=== PATIENT | female | born 1995 | race Hispanic/Latino ===

== ENCOUNTER → 2022-11-04 | Outpatient (CLI) | payer OTHER ==
[~2022-11-04] MED LIST: SUCR1TAB56 PO
== END ==
LOC: EDSEX → M LABSMTC 09:06
PROVIDERS: ATTEND Anesthesiology
DX: Z01.812 Encounter for preprocedural laboratory examination (principal); Z11.52 Encounter for screening for COVID-19

== ENCOUNTER 2022-11-09 09:10 | Observation (INO) | payer OTHER ==
[~2022-11-09] VITALS: Ht 172.7 cm; Wt 75.3 kg
[~2022-11-09 09:10] MED LIST changes: +HEPARIN SOD (PORCINE) 5000UNITS/ML 1ML VIAL/SYRINGE SQ ONE; +LR 1,000 ML IV SCH; +ONDANSETRON 4MG 2ML VIAL IV PRN; +ceFAZolin SOD 2 GM in IV 1 EA IV ONE; +fentaNYL 100 MCG/2 ML INJECTION IV PRN; +oxyCODONE 5MG TAB PO PRN
[2022-11-09] MEDS ORDERED: fentaNYL 250 MCG/5 ML INJECTION As Ordered ONE (09:14)
[2022-11-09] MEDS ORDERED: LIDOCAINE 2% 100MG/5ML SDV (FOR ANES.) As Ordered ONE (09:14)
[2022-11-09] MEDS ORDERED: ONDANSETRON 4MG 2ML VIAL As Ordered ONE (09:14)
[2022-11-09] MEDS ORDERED: propofoL 200 MG/20 ML VIAL As Ordered ONE (09:14)
[2022-11-09] MEDS ORDERED: ROCURONIUM BROMIDE 50MG/5ML VIAL As Ordered ONE (09:14)
[2022-11-09] MEDS ORDERED: MIDAZOLAM INJ 2MG/2ML VIAL As Ordered ONE (09:15)
[2022-11-09] MEDS ORDERED: GENTAMICIN SULF 80MG/2ML VIAL As Ordered ONE (10:58)
[2022-11-09] MEDS ORDERED: BUPIVACAINE LIPOSOME/PF 1.3% 20ML VIAL (13.3MG/ML)(EXPAREL) As Ordered ONE (10:58)
[2022-11-09] MEDS ORDERED: BUPIVACAINE HCL 0.25% 10ML VIAL As Ordered ONE (10:58)
[2022-11-09] MEDS ORDERED: ACETAMINOPHEN 1000MG 100ML IV BAG As Ordered ONE (12:32)
[2022-11-09] MEDS ORDERED: SUGAMMADEX SODIUM 500 MG/5 ML VIAL (BRIDION) As Ordered ONE (12:32)
[2022-11-09] MEDS ORDERED: HYDROmorphone HCL 2MG/ML 1ML VIAL As Ordered ONE (12:34)
[2022-11-09] MEDS ORDERED: ONDANSETRON 4MG 2ML VIAL IV PRN (14:55)
[2022-11-09] MEDS ORDERED: fentaNYL 100 MCG/2 ML INJECTION IV PRN (14:55)
[2022-11-09] MEDS ORDERED: LR 1,000 ML IV SCH (14:55)
[2022-11-09] MEDS ORDERED: oxyCODONE 5MG TAB PO PRN (14:55)
[2022-11-09] MEDS ORDERED: PERCOCET 5MG/325MG TAB PO PRN (15:10)
[2022-11-09] MEDS ORDERED: ACETAMINOPHEN TAB 650MG DOSE (2X325MG) PO PRN (15:10)
[2022-11-09] MEDS ORDERED: ceFAZolin SOD 2 GM in IV 1 EA IV ONE (16:00)
[2022-11-09 16:55] VITALS: BP 131/79
[2022-11-09 17:12] VITALS: BP 129/77
[2022-11-09] MEDS: LR 1,000 ML IV SCH (17:34)
[2022-11-09] MEDS: ONDANSETRON 4MG 2ML VIAL IV PRN ×2 (18:20→22:36)
[2022-11-09 18:30] VITALS: BP 123/69
[2022-11-09] MEDS: traMADol 50 MG TAB PO PRN (19:36)
[2022-11-09 19:41] VITALS: BP 127/76
[2022-11-09 20:48] VITALS: BP 123/73
[2022-11-09 22:53] VITALS: BP 120/71
[2022-11-10 01:51] VITALS: BP 125/70
[2022-11-10] MEDS: traMADol 50 MG TAB PO PRN ×2 (04:36→12:42)
[2022-11-10] MEDS: LR 1,000 ML IV SCH (04:37)
[2022-11-10 06:27] VITALS: BP 130/70
[2022-11-10 10:00] VITALS: BP 130/73
[2022-11-10] MEDS ORDERED: TRAM50TA2 PO (12:13)
[2022-11-10 14:00] VITALS: BP 126/74
== END 2022-11-10 13:10 | disposition home or self-care (01) ==
LOC: EDSEX → M SDC 09:10 → EDUNIT# 11:00 → M MS5PR 15:08
PROVIDERS: ADMIT Plastic Surgery Surgery of the Hand; ATTEND Plastic Surgery Surgery of the Hand
DX: N62 Hypertrophy of breast (principal); F64.8 Other gender identity disorders; K21.9 Gastro-esophageal reflux disease without esophagitis; Z79.899 Other long term (current) drug therapy
CPT/HCPCS: 19303; 19350; 88307; 96361; 96365; 96375; 96376; C9290; J0131; J0690; J1100; J1170; J1580; J1644; J2250; J2405; J3010; S0020